=== PATIENT | male | born 1975 | race Caucasian/White ===

== ENCOUNTER 2018-04-09 18:03 | Emergency (ER) | payer BC, SELFPAY ==
[2018-04-09 18:45] VITALS: RESP 18
[2018-04-09] MEDS ORDERED: Albuterol-Ipratrop 3 mg / 0.5 (3 ml) UD INH STA (19:37)
[2018-04-09] MEDS ORDERED: Albuterol-Ipratrop 3 mg / 0.5 (3 ml) UD ONE (19:41)
--- NOTE | 2018-04-09 20:29 | C.PDOC ---
History Of Present Illness 43 y/o male presents to the ED with complaints of a cough, generalized bodyaches, and subjective fever for 5 days. Today patient began feeling congested with difficulty breathing. States he used a relatives nebulizer once with minimal relief, and then ran out of medications, prompting this visit. Denies recent travel. No sick contacts. Otherwise patient denies any nausea, vomiting, diarrhea, chest pain, SOB, or other associated symptoms. Time Seen by Provider: 04/09/18 19:29 Chief Complaint (Nursing): Flu-like Symptoms History Per: Patient History/Exam Limitations: no limitations Onset/Duration Of Symptoms: Days (x5) Current Symptoms Are (Timing): Still Present Past Medical History Reviewed: Historical Data, Nursing Documentation, Vital Signs Vital Signs: Last Vital Signs Temp 100.3 F H 04/09/18 18:42 Pulse 92 H 04/09/18 18:42 Resp 18 04/09/18 18:42 BP 109/65 04/09/18 18:42 Pulse Ox 96 04/09/18 18:42 - Medical History Other PMH: Ankylosing spondylitis Family History: States: No Known Family Hx - Social History Hx Tobacco Use: No Hx Alcohol Use: No Hx Substance Use: No - Immunization History Hx Influenza Vaccination: No Hx Pneumococcal Vaccination: No Review Of Systems Constitutional: Positive for: Fever Eyes: Negative for: Vision Change ENT: Positive for: Nose Congestion Cardiovascular: Negative for: Chest Pain, Palpitations Respiratory: Positive for: Cough, Wheezing. Negative for: Shortness of Breath Gastrointestinal: Negative for: Nausea, Vomiting, Diarrhea Skin: Negative for: Rash Neurological: Negative for: Dizziness Physical Exam - Physical Exam Appears: Non-toxic, No Acute Distress Skin: Normal Color, Warm, Dry Head: Atraumatic, Normacephalic Eye(s): bilateral: Normal Inspection, PERRL, EOMI Neck: Normal ROM, Supple Chest: Symmetrical Cardiovascular: Rhythm Regular, No Murmur Respiratory: Decreased Breath Sounds, No Rales, No Rhonchi, Wheezing (expiratory wheezing bilaterally) Gastrointestinal/Abdominal: Soft, No Tenderness Extremity: Bilateral: Atraumatic, Normal Color And Temperature Neurological/Psych: Oriented x3, Normal Speech ED Course And Treatment O2 Sat by Pulse Oximetry: 96 (RA) Pulse Ox Interpretation: Normal Progress Note: Administered duoneb treatment and PO prednisone. CXR taken, shows no active infiltrate. Flu swab ordered, and is negative. On reevaluation patient reports improvement. Lung sounds improved. Patient is stable for d/c home. Provided with rx for ventolin inhaler, tessalon perles, albuterol nebulizers, and prednisone PO. Disposition Counseled Patient/Family Regarding: Diagnosis, Need For Followup, Rx Given - Disposition Referrals: Jose Ramos, DNP, WAREHOUSE AND RECEIVING SUPERVISOR [Advanced Practice Nurse] - Disposition: HOME/ ROUTINE Disposition Time: 20:27 Condition: STABLE Additional Instructions: Please Increase fluids Decrease milk Follow up with PMD Take all meds as directed return to ER if worse Prescriptions: Albuterol HFA [Ventolin HFA 90 mcg/actuation (8 g)] 2 puff IH [id number] #1 inhaler Albuterol 0.083% [Albuterol 0.083% Inhal Brianna (2.5 mg/3 ml) UD] 2.5 mg IH TID #100 neb Benzonatate [Tessalon Perles] 100 mg PO TID #20 sgl predniSONE [Prednisone] 40 mg PO DAILY #10 tab Instructions: Acute Bronchitis, Adult (DC) Forms: [employer] ([place]i), Work Excuse - Clinical Impression Clinical Impression: Bronchospasm with bronchitis, acute - 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 - Scribe Statement The provider has reviewed the documentation as recorded by the Scribe (Sheri Gregory) All medical record entries made by the Scribe were at my direction and personally dictated by me. I have reviewed the chart and agree that the record accurately reflects my personal performance of the history, physical exam, medical decision making, and the department course for this patient. I have also personally directed, reviewed, and agree with the discharge instructions and disposition.
[2018-04-09 20:43] VITALS: BP 101/66; PULSE 86; TEMP 98.8
[2018-04-09 21:27] VITALS: O2SAT 96
--- NOTE | 2018-04-10 07:49 | RAD ---
Date of service: 04/09/2018 HISTORY: cough, sob. fever COMPARISON: No prior. TECHNIQUE: Chest PA and lateral FINDINGS: LUNGS: No dense consolidation. Right infrahilar peribronchial thickening possible; finding compatible with a bronchitis. PLEURA: No significant pleural effusion identified. No pneumothorax apparent. CARDIOVASCULAR: No aortic atherosclerotic calcification present. Normal cardiac size. No pulmonary vascular congestion. OSSEOUS STRUCTURES: No significant abnormalities. VISUALIZED UPPER ABDOMEN: Normal. OTHER FINDINGS: None. IMPRESSION: No consolidation. Possible right infrahilar bronchitis.
== END 2018-04-09 20:42 | disposition home or self-care (01) ==
LOC: C.ER 18:03
DX: J20.9 Acute bronchitis, unspecified (principal)